=== PATIENT | male | born 1950 ===

== ENCOUNTER → 2022-06-25 11:34 | Outpatient (CLI) | payer MEDICARE, SELFPAY ==
[2022-06-25 19:58] LABS: Alanine Aminotransferase 20 IU/L (<50); Albumin 4.2 g/dL (3.5-5.0); Albumin Globulin Ratio 1.4 (1.0-2.8); Alkaline Phosphatase 70 U/L (38-126); Aspartate Aminotransferase 25 IU/L (17-59); BUN Creatinine Ratio 30.7 (6-22); Bilirubin Total 0.5 mg/dL (0.2-1.3); Blood Urea Nitrogen 27 mg/dL (9-20); Calcium 9.5 mg/dL (8.4-10.2); Carbon Dioxide 28 mmol/L (22-32); Chloride 102 mmol/L (98-107); Cholesterol 258 mg/dL (140-199); Estimated Glomerular Filt Rate > 60 mL/min (>60); Glucose 86 mg/dL (80-110); HDL Cholesterol 96 mg/dL (40-60); HEMOLYSIS < 15 (0-50); LDL Cholesterol Calculated 152 mg/dL (<100); Potassium 4.4 mmol/L (3.4-5.1); Sodium 137 mmol/L (137-145); Total Protein 7.2 g/dL (6.3-8.2); Triglycerides 51 mg/dL (35-150)
[2022-06-25 20:03] LABS: Add Manual Diff / Slide Review NO; Basophils Absolute Auto 100 /uL (0-100); Basophils Percent Auto 1.4 % (0-2); Eosinophils Absolute Auto 300 /uL (0-450); Eosinophils Percent Auto 6.5 % (2-4); Hematocrit 40.5 % (41-53); Hemoglobin 13.8 g/dL (13.5-17.5); Lymphocytes Absolute Auto 1100 /uL (1100-4500); Lymphocytes Percent Auto 20.3 % (25-40); Mean Corpuscular HGB Conc 34.1 % (30-36); Mean Corpuscular Hemoglobin 30.5 PG (26-34); Mean Corpuscular Volume 89.3 fL (80-100); Monocytes Absolute Auto 400 /uL (0-900); Monocytes Percent Auto 8.4 % (3-14); Neutrophils Absolute Auto 3300 /uL (1500-7000); Neutrophils Percent Auto 63.4 % (50-75); Platelet Count 215 X10^3/uL (150-400); Red Blood Cell Count 4.53 X10^6/uL (4.5-5.9); Red Cell Distribution Width 14.4 % (11.6-14.8); White Blood Cell Count 5.2 X10^3/uL (4.5-11.0)
[2022-06-29 11:35] LABS: Prostate Specific Antigen < 0.064 ng/mL (0.10-4.00)
== END ==
PROVIDERS: PCP Physician Assistant
DX: Z79.899 Other long term (current) drug therapy (principal); Z51.81 Encounter for therapeutic drug level monitoring; Z85.46 Personal history of malignant neoplasm of prostate
CPT/HCPCS: 80053; 80061; 84153; 85025

== ENCOUNTER → 2022-10-14 14:26 | Outpatient (CLI) | payer MEDICARE, SELFPAY ==
[2022-10-14 19:49] LABS: Add Manual Diff / Slide Review NO; Basophils Absolute Auto 0 /uL (0-100); Basophils Percent Auto 0.5 % (0-2); Eosinophils Absolute Auto 300 /uL (0-450); Eosinophils Percent Auto 4.1 % (2-4); Hematocrit 38.6 % (41-53); Lymphocytes Absolute Auto 900 /uL (1100-4500); Lymphocytes Percent Auto 12.1 % (25-40); Mean Corpuscular HGB Conc 33.7 % (30-36); Mean Corpuscular Hemoglobin 30.1 PG (26-34); Mean Corpuscular Volume 89.2 fL (80-100); Monocytes Absolute Auto 500 /uL (0-900); Neutrophils Absolute Auto 5700 /uL (1500-7000); Neutrophils Percent Auto 76.3 % (50-75); Platelet Count 259 X10^3/uL (150-400); Red Blood Cell Count 4.32 X10^6/uL (4.5-5.9); Red Cell Distribution Width 15.4 % (11.6-14.8); White Blood Cell Count 7.5 X10^3/uL (4.5-11.0)
[2022-10-14 20:07] LABS: Alanine Aminotransferase 20 IU/L (<50); Albumin 4.1 g/dL (3.5-5.0); Albumin Globulin Ratio 1.5 (1.0-2.8); Alkaline Phosphatase 75 U/L (38-126); Aspartate Aminotransferase 27 IU/L (17-59); BUN Creatinine Ratio 34.5 (6-22); Bilirubin Total 0.5 mg/dL (0.2-1.3); Blood Urea Nitrogen 29 mg/dL (9-20); Calcium 8.9 mg/dL (8.4-10.2); Carbon Dioxide 28 mmol/L (22-32); Chloride 103 mmol/L (98-107); Estimated Glomerular Filt Rate > 60 mL/min (>60); Globulin 2.8 g/dL (1.7-4.1); Glucose 102 mg/dL (80-110); HEMOLYSIS < 15 (0-50); Potassium 4.1 mmol/L (3.4-5.1); Sodium 138 mmol/L (137-145); Total Protein 6.9 g/dL (6.3-8.2)
== END ==
PROVIDERS: PCP Family Medicine; Visit Provider Dermatology
DX: Z51.81 Encounter for therapeutic drug level monitoring (principal)
CPT/HCPCS: 80053; 85025

== ENCOUNTER → 2023-06-01 10:26 | Outpatient (CLI) | payer MEDICARE, SELFPAY ==
[2023-06-01 19:13] LABS: Add Manual Diff / Slide Review NO; Basophils Absolute Auto 0 /uL (0-100); Basophils Percent Auto 0.9 % (0-2); Eosinophils Absolute Auto 300 /uL (0-450); Eosinophils Percent Auto 6.4 % (2-4); Hematocrit 39.8 % (41-53); Hemoglobin 13.4 g/dL (13.5-17.5); Lymphocytes Absolute Auto 1100 /uL (1100-4500); Lymphocytes Percent Auto 21.4 % (25-40); Mean Corpuscular HGB Conc 33.6 % (30-36); Mean Corpuscular Hemoglobin 30.4 PG (26-34); Mean Corpuscular Volume 90.5 fL (80-100); Monocytes Absolute Auto 400 /uL (0-900); Neutrophils Absolute Auto 3200 /uL (1500-7000); Neutrophils Percent Auto 63.3 % (50-75); Platelet Count 242 X10^3/uL (150-400); Red Cell Distribution Width 14.8 % (11.6-14.8); White Blood Cell Count 5.1 X10^3/uL (4.5-11.0)
[2023-06-01 19:27] LABS: Alanine Aminotransferase 21 IU/L (<50); Albumin 3.8 g/dL (3.5-5.0); Albumin Globulin Ratio 1.4 (1.0-2.8); Alkaline Phosphatase 55 U/L (38-126); Aspartate Aminotransferase 24 IU/L (17-59); Bilirubin Total 0.5 mg/dL (0.2-1.3); Blood Urea Nitrogen 27 mg/dL (9-20); Calcium 9.3 mg/dL (8.4-10.2); Carbon Dioxide 30 mmol/L (22-32); Chloride 102 mmol/L (98-107); Cholesterol 257 mg/dL (140-199); Estimated Glomerular Filt Rate > 60 mL/min (>60); Globulin 2.8 g/dL (1.7-4.1); Glucose 93 mg/dL (80-110); HDL Cholesterol 94 mg/dL (40-60); HEMOLYSIS < 15 (0-50); LDL Cholesterol Calculated 152 mg/dL (<100); Potassium 4.5 mmol/L (3.4-5.1); Sodium 137 mmol/L (137-145); Total Protein 6.6 g/dL (6.3-8.2); Triglycerides 57 mg/dL (35-150)
== END ==
PROVIDERS: PCP Family Medicine; Visit Provider Dermatology
DX: Z51.81 Encounter for therapeutic drug level monitoring (principal); Z79.899 Other long term (current) drug therapy
CPT/HCPCS: 80053; 80061; 85025

== ENCOUNTER → 2023-08-24 13:26 | Outpatient (CLI) | payer MEDICARE, SELFPAY ==
[2023-08-24 19:19] LABS: Add Manual Diff / Slide Review NO; Basophils Absolute Auto 0 /uL (0-100); Basophils Percent Auto 0.6 % (0-2); Eosinophils Absolute Auto 300 /uL (0-450); Eosinophils Percent Auto 4.7 % (2-4); Hematocrit 38.5 % (41-53); Hemoglobin 12.9 g/dL (13.5-17.5); Lymphocytes Absolute Auto 1100 /uL (1100-4500); Lymphocytes Percent Auto 19.3 % (25-40); Mean Corpuscular HGB Conc 33.5 % (30-36); Mean Corpuscular Hemoglobin 30.1 PG (26-34); Mean Corpuscular Volume 89.8 fL (80-100); Monocytes Absolute Auto 500 /uL (0-900); Monocytes Percent Auto 7.7 % (3-14); Neutrophils Absolute Auto 4000 /uL (1500-7000); Neutrophils Percent Auto 67.7 % (50-75); Platelet Count 217 X10^3/uL (150-400); Red Blood Cell Count 4.29 X10^6/uL (4.5-5.9); Red Cell Distribution Width 15.2 % (11.6-14.8)
[2023-08-24 20:13] LABS: Alanine Aminotransferase 19 IU/L (<50); Albumin 3.9 g/dL (3.5-5.0); Albumin Globulin Ratio 1.5 (1.0-2.8); Alkaline Phosphatase 68 U/L (38-126); Aspartate Aminotransferase 26 IU/L (17-59); BUN Creatinine Ratio 31.1 (6-22); Bilirubin Total 0.5 mg/dL (0.2-1.3); Blood Urea Nitrogen 28 mg/dL (9-20); Calcium 9.5 mg/dL (8.4-10.2); Carbon Dioxide 31 mmol/L (22-32); Chloride 100 mmol/L (98-107); Estimated Glomerular Filt Rate > 60 mL/min (>60); Globulin 2.6 g/dL (1.7-4.1); Glucose 95 mg/dL (80-110); HEMOLYSIS < 15 (0-50); Potassium 4.5 mmol/L (3.4-5.1); Sodium 136 mmol/L (137-145); Total Protein 6.5 g/dL (6.3-8.2)
== END ==
PROVIDERS: PCP Family Medicine; Visit Provider Dermatology
DX: Z51.81 Encounter for therapeutic drug level monitoring (principal)
CPT/HCPCS: 80053; 85025

== ENCOUNTER → 2023-10-19 11:58 | Outpatient (CLI) | payer MEDICARE, OTHER, SELFPAY ==
[2023-10-19 22:08] LABS: MRSA (Nasal) PCR Not Detected (Not Detect)
[2023-10-21 14:09] LABS: Fecal Immunochemical Test Negative (Negative)
== END ==
PROVIDERS: Physician Assistant; PCP Family Medicine; Visit Provider Urology
DX: N39.3 Stress incontinence (female) (male) (principal); D64.9 Anemia, unspecified
CPT/HCPCS: 82274; 87086; 87797